=== PATIENT | male | born 1995 | race Asian ===

== ENCOUNTER 2018-01-06 19:17 | Emergency (ER) | payer OTHER ==
--- NOTE | 2018-01-06 20:44 | ED ---
Lower Extremity - HPI Summary HPI Summary: Pt is a 22 year old male who presents to the ED with a L ankle twist that happened while he was playing an informal soccer game in a park. The pt is a student at [employer]. He complains of pain upon movement and is currently limping. - History of Current Complaint Chief Complaint: EDExtremityLower Stated Complaint: LT ANKLE INJURY Time Seen by Provider: 01/06/18 20:17 Hx Obtained From: Patient Mechanism Of Injury: Other - playing soccer with friends Onset of Pain: Hours Onset/Duration: Still Present Severity Initially: Moderate Severity Currently: Moderate Pain Intensity: 6 Pain Scale Used: 0-10 Numeric Timing: Constant, Lasting Hours Location: Is Discrete @ - L ankle Associated Signs And Symptoms: Positive: Swelling Aggravating Factor(s): Weight Bearing Alleviating Factor(s): Rest, Elevation, Ice Able to Bear Weight: No - Allergies/Home Medications Allergies/Adverse Reactions: Allergies Allergy/AdvReac Type Severity Reaction Status Date / Time No Known Allergies Allergy Verified 01/06/18 19:48 Home Medications: Home Medications NK [No Home Medications Reported] 01/06/18 [History Confirmed 01/06/18] PMH/Surg Hx/FS Hx/Imm Hx Previously Healthy: Yes Cardiovascular History: Denies: Hx Hypertension Sensory History: Denies: Hx Deafness - Immunization History Immunizations Up to Date: Yes Infectious Disease History: No Infectious Disease History: Denies: Traveled Outside the [place] in Last 30 Days - Family History Known Family History: Negative: Hypertension, Renal Disease - Social History Occupation: Student Lives: Dormitory/Roommates Alcohol Use: None Substance Use Type: Reports: None Smoking Status (MU): Never Smoked Tobacco Review of Systems Negative: Fever Positive: Myalgia - L ankle pain, Edema All Other Systems Reviewed And Are Negative: Yes Physical Exam - Summary Physical Exam Summary: Appearance: Well-appearing, Well-nourished, lying in bed comfortable Skin: Warm, dry, no obvious rash Eyes: sclera anicteric, no conjunctival pallor ENT: mucous membranes moist Neck: deferred Respiratory: No signs of respiratory distress Cardiovascular: Appears well perfused, pulses are nml Abdomen: deferred Musculoskeletal: L ankle lateral malleolus moderate swelling, mild tenderness , no joint instability in ankle, no tenderness over head of 5th metatarsal or medial malleolus. Neurological: Awake and alert, mentation is normal, speech is fluent and appropriate Psychiatric: affect is normal, does not appear anxious or depressed Triage Information Reviewed: Yes Vital Signs On Initial Exam: Initial Vitals Temp Pulse Resp BP Pulse Ox 98.3 F 66 16 120/81 100 01/06/18 19:45 01/06/18 19:45 01/06/18 19:45 01/06/18 19:45 01/06/18 19:45 Vital Signs Reviewed: Yes Diagnostics - Vital Signs Vital Signs Temp Pulse Resp BP Pulse Ox 01/06/18 19:45 98.3 F 66 16 120/81 100 - Laboratory Lab Statement: Any lab studies that have been ordered have been reviewed, and results considered in the medical decision making process. - Radiology No standard instances Xray Interpretation: No Acute Changes - L ankle Radiology Interpretation Completed By: ED Physician - Radiologist has not yet reviewed this report. Lower Extremity Course/Dx - Diagnoses Provider Diagnoses: Left ankle sprain Discharge - Sign-Out/Discharge Documenting (check all that apply): Patient Departure - Discharge Plan Condition: Good Disposition: HOME Patient Education Materials: Ankle Sprain (ED) Referrals: Justen Moreno MD [Medical Doctor] - If Needed Additional Instructions: Use the crutches to get around over the next couple of days, but you can begin bearing weight as soon as you feel able. Elevation and ice are particularly helpful in the first 2-3 days after an injury. - Attestation Statements Document Initiated by Scribe: Yes Documenting Scribe: Jess Martinez Provider For Whom Scribe is Documenting (Include Credential): Darius Brasher MD. Scribe Attestation: Jess Alvarado, scribed for Darius Brasher MD. on 01/06/18 at 2045.
[2018-01-06 21:18] VITALS: BP 118/85
--- NOTE | 2018-01-07 08:26 | RAD ---
INDICATION: Left ankle pain after soccer injury COMPARISON: None. TECHNIQUE: 3 views of the left ankle were obtained. FINDINGS: There is a moderate degree of soft tissue swelling overlying the fibular malleolus. The well corticated bones exhibit normal alignment. Joint spaces appear maintained. No fracture is seen. IMPRESSION: SOFT TISSUE SWELLING OVERLYING THE FIBULAR MALLEOLUS WITHOUT RADIOGRAPHICALLY APPARENT UNDERLYING FRACTURE. If the patient's symptoms persist, follow-up imaging is recommended. R0
== END 2018-01-06 21:17 | disposition home or self-care (01) ==
LOC: ED 19:17
DX: S93.402A Sprain of unspecified ligament of left ankle, initial encounter (principal); X50.1XXA Overexertion from prolonged static or awkward postures, initial encounter; Y93.66 Activity, soccer; Y92.830 Public park as the place of occurrence of the external cause
CPT/HCPCS: 99282